=== PATIENT | male | born 1970 | race Caucasian/White ===

== ENCOUNTER 2022-03-23 17:30 | Emergency (ER) | payer BC ==
[2022-03-23 17:35] VITALS: BP 158/99; PULSE 81
[2022-03-23] MEDS ORDERED: Lidocaine 1% with EPINEPHrine 1:100,000 10 ML MDV ONE (17:39)
[2022-03-23] MEDS ORDERED: Lidocaine 1% with EPINEPHrine 1:100,000 10 ML MDV INJECT ONE (17:42)
== END 2022-03-23 18:05 | disposition home or self-care (01) ==
LOC: KA.ED 17:30
DX: S01.01XA Laceration without foreign body of scalp, initial encounter (principal); W00.0XXA Fall on same level due to ice and snow, initial encounter
CPT/HCPCS: 12002; 12013; 99282; 99283